=== PATIENT | female | born 1985 | race Two or more races ===

== ENCOUNTER 2017-01-20 13:13 | Observation (INO) | payer MEDICAID ==
[2017-01-20 13:45] VITALS: BP 111/59
== END 2017-01-20 15:35 | disposition home or self-care (01) ==
LOC: MLD 13:13
PROVIDERS: ADMIT Obstetrics & Gynecology; ATTEND Obstetrics & Gynecology
DX: O36.8190 Decreased fetal movements, unspecified trimester, not applicable or unspecified (principal); Z3A.00 Weeks of gestation of pregnancy not specified
CPT/HCPCS: 81000; G0378